=== PATIENT | female | born 1985 | race African-American/Black ===

== ENCOUNTER 2019-09-07 13:48 | Emergency (ER) | payer OTHER ==
[~2019-09-07] VITALS: Ht 165.1 cm; Wt 59.0 kg
[2019-09-07 14:03] VITALS: BP 110/74
[2019-09-07] MEDS ORDERED: Ketorolac 30mg Inj IM ONE (14:15)
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
[2019-09-07] MEDS ORDERED: IBUPROFEN600 M1 ORAL (16:35)
[2019-09-07] MEDS ORDERED: LIDODERM700 M1 TOPIC (16:35)
[2019-09-07] MEDS ORDERED: ACETAMINOPHEN-1 EAC1 ORAL (16:35)
[2019-09-07 16:42] VITALS: BP 118/80
== END 2019-09-07 16:45 | disposition home or self-care (01) ==
LOC: EMR 14:13
DX: S22.32XA Fracture of one rib, left side, initial encounter for closed fracture (principal); R07.9 Chest pain, unspecified; F12.90 Cannabis use, unspecified, uncomplicated; R05 Cough; Y09 Assault by unspecified means
CPT/HCPCS: 71250; 74176; 81025; 96360; 96372; J1885; J2405; J7030; Z7502; 99284